=== PATIENT | male | born 1990 | race Caucasian/White ===

== ENCOUNTER 2018-10-31 17:00 | Emergency (ER) | payer SELFPAY ==
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
[2018-10-31] MEDS ORDERED: HYDROCODONE/APAP 10/325 TAB ONE (18:06)
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
[2018-10-31] MEDS ORDERED: CEFTRIAXONE/SWI 1gm 1 GM/10 ML SYR ONE (19:06)
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
[2018-10-31] MEDS ORDERED: TETANUS & DIPHTHERIA TOX,ADULT 0.5 ML VIAL ONE (19:36)
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
== END 2018-10-31 19:56 | disposition short-term general hospital (02) ==
LOC: ER 17:00
DX: S81.812A Laceration without foreign body, left lower leg, initial encounter (principal); V44.5XXA Car driver injured in collision with heavy transport vehicle or bus in traffic accident, initial encounter; F17.210 Nicotine dependence, cigarettes, uncomplicated; Z23 Encounter for immunization
CPT/HCPCS: 90471; 90714; 96374; 99285; J0696